=== PATIENT | male | born 1975 | race Caucasian/White ===

== ENCOUNTER 2017-06-26 09:18 | Emergency (ER) | payer BC ==
[2017-06-26 10:01] VITALS: BP 144/89
--- NOTE | 2017-06-26 10:43 | UC ---
FLU HPI - HPI Summary HPI Summary: Patient comes to urgent care today with 5 days of upper respiratory symptoms that aren't getting any better. He reports chills and waking with sweats. He states he did get his flu vaccine this year and his did have similar symptoms to this last week but they have since resolved. - History of Current Complaint Chief Complaint: UCRespiratory Stated Complaint: FLU-LIKE SYMPTOMS Time Seen by Provider: 06/26/17 10:10 Hx Obtained From: Patient Onset/Duration: Sudden Onset Severity Currently: Mild Severity Initially: Mild Pain Intensity: 4 Pain Scale Used: 0-10 Numeric Associated Signs & Symptoms: Positive: Fever, Myalgia, Cough, Headache Related Hx: Possible Flu/Infectious Exposure - Allergy/Home Medications Allergies/Adverse Reactions: Allergies Allergy/AdvReac Type Severity Reaction Status Date / Time No Known Allergies Allergy Verified 06/26/17 10:01 Home Medications: Home Medications Amlodipine Besylate [Norvasc 2.5 mg tab] 2.5 mg PO DAILY 06/26/17 [History Confirmed 06/26/17] Sertraline* [Zoloft*] 50 mg PO DAILY 06/26/17 [History Confirmed 06/26/17] PMH/Surg Hx/FS Hx/Imm Hx Previously Healthy: No Cardiovascular History: Hypertension - Patient states he did not take his antihypertensives medicine this morning - Surgical History Surgical History: None - Social History Occupation: Employed Full-time Lives: With Family Alcohol Use: Occasionally Substance Use Type: None Smoking Status (MU): Never Smoked Tobacco Review of Systems Constitutional: Fever, Chills, Fatigue Skin: Negative Eyes: Negative ENT: Negative Respiratory: Cough Cardiovascular: Negative Gastrointestinal: Negative Genitourinary: Negative Motor: Negative Neurovascular: Negative Musculoskeletal: Arthralgia, Myalgia Neurological: Headache Psychological: Negative Is Patient Immunocompromised?: No All Other Systems Reviewed And Are Negative: Yes Physical Exam Triage Information Reviewed: Yes Appearance: Well-Appearing, No Pain Distress, Well-Nourished Vital Signs: Initial Vital Signs Temp 97.0 F 06/26/17 09:58 Pulse 70 06/26/17 09:58 Resp 16 06/26/17 09:58 BP 144/89 06/26/17 09:58 Pulse Ox 96 06/26/17 09:58 Vital Signs Reviewed: Yes Eye Exam: Normal Eyes: Positive: Conjunctiva Clear ENT Exam: Normal ENT: Positive: Normal ENT inspection, Hearing grossly normal, Pharynx normal, Nasal congestion, Nasal drainage, TMs normal, Uvula midline. Negative: Tonsillar swelling, Tonsillar exudate, Trismus, Muffled voice, Hoarse voice, Dental tenderness, Sinus tenderness Dental Exam: Normal Neck exam: Normal Neck: Positive: Supple, Nontender, No Lymphadenopathy Respiratory Exam: Normal Respiratory: Positive: Chest non-tender, Lungs clear, Normal breath sounds, No respiratory distress, No accessory muscle use Cardiovascular Exam: Normal Cardiovascular: Positive: RRR, No Murmur, Pulses Normal, Brisk Capillary Refill Musculoskeletal Exam: Normal Musculoskeletal: Positive: Strength Intact, ROM Intact, No Edema Neurological Exam: Normal Neurological: Positive: Alert, Muscle Tone Normal Psychological Exam: Normal Skin Exam: Normal Diagnostics - Laboratory Diagnostic Studies Completed/Ordered: Influenza A-negative, influenza B-positive Flu Course/Dx - Course Course Of Treatment: Rest increase fluids Tylenol ibuprofen [id number] treatments for symptom relief. Take antihypertensive is planned follow-up with Dr. Davidson for blood pressure recheck - Differential Dx/Diagnosis Provider Diagnoses: Hypertension in poor control, influenza B Discharge - Sign-Out/Discharge Documenting (check all that apply): Discharge - Discharge Plan Condition: Stable Disposition: HOME Patient Education Materials: Influenza (ED), Hypertension (ED) Referrals: Yulisa Henry MD [Primary Care Provider] - If Needed - Billing Disposition and Condition Condition: STABLE Disposition: HOME
== END 2017-06-26 10:48 | disposition home or self-care (01) ==
LOC: UCEAST 09:18
DX: J10.1 Influenza due to other identified influenza virus with other respiratory manifestations (principal); I10 Essential (primary) hypertension
CPT/HCPCS: 87502; 99201; G0463

== ENCOUNTER 2019-02-15 07:05 | Day surgery (SDC) | payer BC ==
[~2019-02-15 07:05] MED LIST: Buffered Lidocaine 1% SYRIN* 1 ML/SYRINGE INTRADERM ONE; Lactated Ringers 1000 ML Bag* 1,000 ML IV SCH
[2019-02-15] MEDS ORDERED: fentaNYL* 50 MCG/ML 2 ML VIAL (100 MCG VIAL) ONE (08:20)
[2019-02-15] MEDS ORDERED: Midazolam* 1 MG/ML 5 ML VIAL (5 MG) ONE (08:21)
[2019-02-15] MEDS ORDERED: Propofol* 10 MG/ML 20 ML BTL ONE (08:54)
[2019-02-15 09:32] VITALS: BP 127/78
--- NOTE | 2019-02-15 12:12 | OP ---
DATE OF OPERATION: 02/15/19 [facility] DATE OF : 77 SURGEON: Dunia eBnnett MD DEMOLITION EXPERT: ELBERT Roberts ANESTHESIA: Local MAC. PRE-OP DIAGNOSIS: Right index finger mass. POST-OP DIAGNOSIS: Right index finger mass. OPERATIVE PROCEDURE: Removal of right index finger mass. ESTIMATED BLOOD LOSS: Zero. TOURNIQUET TIME: 10 minutes. INDICATION FOR PROCEDURE: Juanjose is a 43-year-old male who has a painful mass on the dorsal aspect of his right index finger PIP joint. He presents for excision. DESCRIPTION OF PROCEDURE: The patient was brought to the operating room and was given a sedation anesthetic and a digital block with 10 cc of 1% plain lidocaine applied to the right index finger. The skin of his right hand and forearm was prepped and draped in the usual sterile fashion. The finger was exsanguinated with Tourni-Cot, which was left in place during the procedure. A longitudinal incision was made over the mass. We dissected bluntly through the subcutaneous tissue. The mass was a ganglion cyst emanating from the extensor tendon sheath and the PIP joint. It was removed in its entirety and sent for pathology. The wound was irrigated and the skin edges reapproximated with 4-0 nylon suture. The wound was dressed with Xeroform, 4x4, Webril, and Coban. The patient tolerated the procedure well and was brought to the recovery room in good condition. [id number]/CPS #: [id number] MTDD
[2019-02-15] MEDS ORDERED: Lidocaine 1% INJ* 10 MG/ML 30 ML SDV ONE (14:58)
== END 2019-02-15 09:51 | disposition home or self-care (01) ==
LOC: OREAST 07:05
PROVIDERS: ATTEND Orthopaedic Surgery
DX: M67.441 Ganglion, right hand (principal); I10 Essential (primary) hypertension; F41.8 Other specified anxiety disorders; M19.90 Unspecified osteoarthritis, unspecified site
CPT/HCPCS: 88304; J2250; J2704; J3010